=== PATIENT | female | born 1970 | race Caucasian/White ===

== ENCOUNTER → 2018-03-24 14:35 | Outpatient (REF) | payer SELFPAY | LOC: OM 14:35 | PROVIDERS: PCP Family Medicine; Visit Provider Nurse Practitioner Family | DX: Z23 Encounter for immunization (principal) ==

== ENCOUNTER 2019-05-01 16:23 | Outpatient (REF) | payer OTHER, SELFPAY ==
[2019-05-01 21:48] LABS: BUN 7 mg/dL (7-18); CREATININE 0.77 mg/dL (0.55-1.02); Calcium 8.2 mg/dL (8.5-10.1); Chloride 105 mmol/L (98-107); Glucose 101 mg/dL (70-100); Sodium 142 mmol/L (136-145)
== END 2019-05-01 16:43 ==
LOC: NCHCN 16:23
PROVIDERS: PCP Family Medicine; Visit Provider Nurse Practitioner Family
DX: J02.9 Acute pharyngitis, unspecified (principal); R03.0 Elevated blood-pressure reading, without diagnosis of hypertension
CPT/HCPCS: 80048

== ENCOUNTER 2019-05-10 17:29 | Outpatient (REF) | payer OTHER, SELFPAY ==
[2019-05-10 20:38] LABS: Anion Gap 8.3 mmol/L (3-11); BUN 13 mg/dL (7-18); CO2 28.7 mmol/L (21.0-32.0); CREATININE 0.75 mg/dL (0.55-1.02); Calcium 8.8 mg/dL (8.5-10.1); Chloride 104 mmol/L (98-107); Glucose 91 mg/dL (70-100); Potassium 4.3 mmol/L (3.5-5.1); Sodium 141 mmol/L (136-145)
== END 2019-05-10 17:49 ==
LOC: NCHCN 17:29
PROVIDERS: PCP Family Medicine; Visit Provider Nurse Practitioner Family
DX: R03.0 Elevated blood-pressure reading, without diagnosis of hypertension (principal)
CPT/HCPCS: 80048

== ENCOUNTER 2021-01-23 17:18 | Outpatient (REF) | payer OTHER, SELFPAY ==
--- NOTE | 2021-01-23 13:30 | PAPFT_PTH ---
PATIENT: Kylie Sheppard LOC: [facility]#:[id number] AGE/SX: 50/F ROOM: RE01/23/[address]: Anamaria Logan V : 1970 BED: DIS: 01/23/2021 SPEC #: [id number] RECD: 01/23/21 18:43 STATUS: [facility] REQ #: [id number] MAYITO: 01/23/21 13:[address]: Anamaria Logan V DEPT: [facility] Cytology RECD BY: Destiny Keith Tissues: 1 - CX/ENDOCX FOR PAP SMEARS Procedures: PAP THIN PREP/[facility] Screening HPV DNA PROBE Comments: [id number]
[2021-01-23 19:50] LABS: Anion Gap 8.4 mmol/L (3-11); BUN 10 mg/dL (7-18); CO2 28.6 mmol/L (21.0-32.0); CREATININE 0.7 mg/dL (0.55-1.02); Calcium 8.9 mg/dL (8.5-10.1); Chloride 104 mmol/L (98-107); Glucose 80 mg/dL (74-106); Potassium 4.3 mmol/L (3.5-5.1); Sodium 141 mmol/L (136-145); TSH (W/Ref FT4) 2.85 uIU/mL (0.36-3.74)
== END 2021-01-23 17:19 | disposition home or self-care (01) ==
LOC: NCHCN 17:18
PROVIDERS: PCP Family Medicine; Visit Provider Family Medicine
DX: Z00.00 Encounter for general adult medical examination without abnormal findings (principal); R03.0 Elevated blood-pressure reading, without diagnosis of hypertension; Z83.49 Family history of other endocrine, nutritional and metabolic diseases; Z12.4 Encounter for screening for malignant neoplasm of cervix; Z01.419 Encounter for gynecological examination (general) (routine) without abnormal findings; Z11.51 Encounter for screening for human papillomavirus (HPV)
CPT/HCPCS: 80048; 88142; 84443; 87624

== ENCOUNTER 2022-02-11 18:07 | Outpatient (REF) | payer OTHER, SELFPAY | END 2022-02-11 18:08 | disposition home or self-care (01) | LOC: LBN 18:07 | PROVIDERS: PCP Family Medicine; Visit Provider Physician Assistant Medical ==

== ENCOUNTER 2022-02-11 20:59 | Outpatient (REF) | payer OTHER, SELFPAY ==
[2022-02-13 11:35] LABS: COVID-19 RT-PCR UVMMC Result Negative (Negative)
== END 2022-02-11 21:00 | disposition home or self-care (01) ==
LOC: LBN 20:59
PROVIDERS: PCP Family Medicine; Visit Provider Physician Assistant Medical
DX: J02.9 Acute pharyngitis, unspecified (principal); Z20.822 Contact with and (suspected) exposure to COVID-19
CPT/HCPCS: U0003; 87070

== ENCOUNTER → 2022-03-18 01:25 | Outpatient (CLI) | payer OTHER, SELFPAY ==
--- NOTE | 2022-03-18 16:20 | DI.MAMMO_ITS ---
Exam(s) MAMMO SCREENING EXAM: MAMMO SCREENING CLINICAL HISTORY: [facility] Z00.00, SCREENING FOR BREAST CANCER TECHNIQUE: Mammograms were interpreted according to the usual protocol including computer analysis w Ar[employer]pex system, tomosynthesis and C-view imaging. COMPARISON: FINDINGS: The breasts are of moderate density with fairly symmetrical distribution of fibroglandular tissue. N o dominant mass or clumped microcalcification is identified in either breast. No prior examinations available for comparison. IMPRESSION: No specific evidence of malignancy at this time. Routine screening examinations are suggested at yea rly intervals in this age group according to the ACS ACR guidelines. BI-RADS Category 1 - Negative Density Breast Density - Category B - Scattered areas of fibroglandular density
== END ==
PROVIDERS: PCP Family Medicine; Visit Provider Family Medicine
DX: Z00.00 Encounter for general adult medical examination without abnormal findings (principal); Z12.31 Encounter for screening mammogram for malignant neoplasm of breast
CPT/HCPCS: 77063; 77067

== ENCOUNTER 2022-06-19 14:46 | Outpatient (REF) | payer OTHER, SELFPAY ==
[2022-06-19 15:57] LABS: HCT 39.2 % (36.0-46.0); HGB 12.6 g/dL (11.2-15.7); MCH 28.3 pg (27.0-33.0); MCHC 32.1 % (32.0-36.0); MCV 88 fL (80-95); MPV 10.3 fL (8.0-11.0); Platelet Count 394 10^3/uL (130-400); RBC 4.45 10^6/uL (3.93-5.22); RDW-SD 44.9 fL; WBC 8.68 10^3/uL (4.4-10.8)
[2022-06-19 16:16] LABS: ALT 23 U/L (14-59); AST 18 U/L (15-37); Albumin 3.6 g/dL (3.4-5.0); Alkaline Phosphatase 78 U/L (46-116); Anion Gap 6.5 mmol/L (3-11); BUN 19 mg/dL (7-18); Bilirubin, Total 0.3 mg/dL (0.2-1.0); CO2 30.5 mmol/L (21.0-32.0); Calcium 9.3 mg/dL (8.5-10.1); Calculated LDL 121 mg/dL (<100); Chloride 100 mmol/L (98-107); Cholesterol 199 mg/dL (<200); Estimated GFR 68.21 (mL/min/1.73m2); Glucose 100 mg/dL (74-106); HDL Cholesterol 68 mg/dL (40-60); Potassium 3.8 mmol/L (3.5-5.1); Sodium 137 mmol/L (136-145); Triglyceride 54 mg/dL (<150)
[2022-06-19 16:27] LABS: Hemoglobin A1C 6.1 % (<5.7)
== END 2022-06-19 14:47 | disposition home or self-care (01) ==
LOC: NCHCN 14:46
PROVIDERS: PCP Family Medicine; Visit Provider Family Medicine
DX: I10 Essential (primary) hypertension (principal); Z80.0 Family history of malignant neoplasm of digestive organs; Z86.2 Personal history of diseases of the blood and blood-forming organs and certain disorders involving the immune mechanism; R73.03 Prediabetes
CPT/HCPCS: 80053; 80061; 85027; 83036

== ENCOUNTER 2023-06-28 21:06 | Outpatient (REF) | payer OTHER, SELFPAY | END 2023-06-28 21:07 | disposition home or self-care (01) | LOC: LBN 21:06 | PROVIDERS: PCP Family Medicine; Visit Provider Nurse Practitioner Family | DX: J02.9 Acute pharyngitis, unspecified (principal) | CPT/HCPCS: 87070 ==